=== PATIENT | male | born 1960 | race Caucasian/White ===

== ENCOUNTER → 2024-11-21 | Outpatient (CLI) | payer BC, OTHER, SELFPAY ==
--- NOTE | 2024-11-21 14:00 | XR_ITS ---
Examination: Shoulder,right, 3 views Technique: Shoulder AP internal rotation, AP external rotation, Y view shoulder, 3 views Exam date and time :November 21, 2024 1409 hours INDICATIONS: Right shoulder pain 6 months. FINDINGS: Moderate narrowing glenohumeral joint No shoulder fracture or dislocation Mild osteoarthritis acromioclavicular joint IMPRESSION: Moderate narrowing glenohumeral joint
[2024-11-21 16:17] LABS: Amphetamine/Methamp Scrn,U Negative (Negative); Barbiturate Screen,Urine Negative (Negative); Benzodiazepines Screen,Urine Negative (Negative); Benzoylecgonine Screen, Ur Negative (Negative); Fentanyl Screen,Urine Negative (Negative); Opiate Screen,Urine Positive (Negative); THC Screen,Urine Positive (Negative)
== END | disposition home or self-care (01) ==
LOC: CDIM 13:29 → SLDO 14:19
PROVIDERS: PCP Family Medicine; Referring Provider Family Medicine; Visit Provider Family Medicine
DX: M25.811 Other specified joint disorders, right shoulder (principal); M54.12 Radiculopathy, cervical region; Z71.51 Drug abuse counseling and surveillance of drug abuser
CPT/HCPCS: 73030; 80307

== ENCOUNTER → 2025-04-21 | Outpatient (CLI) | payer BC, OTHER, SELFPAY ==
--- NOTE | 2025-04-21 13:39 | XR_ITS ---
Examination: Cervical spine 3 views TECHNIQUE: AP lateral coned AP odontoid cervical spine 3 views Date and time: April 21, 2025, 1351 hours INDICATIONS: Neck pain radiating to the shoulder one year FINDINGS: Cervicothoracic dextroscoliosis 10 degrees. Advanced degenerative disc disease C4-C5, C5-C6, C6-C7 No fracture Intact odontoid IMPRESSION: Advanced degenerative disc disease C4-C5, C5-C6, C6-C7.
== END | disposition home or self-care (01) ==
PROVIDERS: PCP Family Medicine; Referring Provider Orthopaedic Surgery; Visit Provider Orthopaedic Surgery
DX: M50.321 Other cervical disc degeneration at C4-C5 level (principal)
CPT/HCPCS: 72040

== ENCOUNTER → 2025-05-14 | Outpatient (CLI) | payer OTHER, SELFPAY ==
[2025-05-14 16:55] LABS: Amphetamine/Methamp Scrn,U Negative (Negative); Barbiturate Screen,Urine Negative (Negative); Benzodiazepines Screen,Urine Negative (Negative); Benzoylecgonine Screen, Ur Negative (Negative); Fentanyl Screen,Urine Negative (Negative); Opiate Screen,Urine Positive (Negative); THC Screen,Urine Positive (Negative)
== END | disposition home or self-care (01) ==
PROVIDERS: PCP Internal Medicine; Referring Provider Internal Medicine; Visit Provider Internal Medicine
DX: M54.50 Low back pain, unspecified (principal); M25.511 Pain in right shoulder; F41.9 Anxiety disorder, unspecified; I10 Essential (primary) hypertension; F52.21 Male erectile disorder
CPT/HCPCS: 80307